=== PATIENT | female | born 1950 | race Caucasian/White ===

== ENCOUNTER → 2017-07-17 | Outpatient (CLI) | payer MEDICARE ==
[~2017-07-17] MED LIST: ADJUSTABLE COMM1 MIS; ASPI81TA11 PO; ATOR10TA15 PO; CALC8.5C CHEW; CPMMACHINE; CRANCAP2 PO; DIPH25CA PO; ESTR42.5V VAGINAL; GLUCCAP4 PO; LISI10TA PO; MELO7.5T4 PO; OMEP20TA PO; PEDI1TAB11 PO; VITA1000 PO; WALKER WHEELS/F1 MIS; ZOLO25TA PO
[2017-07-17 08:35] LABS: AUTOMATED NEUTROPHIL # 4.3 TH/MM3 (1.8-7.7); BASOPHIL % 0.7 % (0.0-2.0); EOSINOPHIL # 0.2 TH/MM3 (0-0.4); EOSINOPHIL % 3.1 % (0.0-4.0); HEMATOCRIT 40.6 % (35.0-46.0); HEMO FLAGS DIFF FINAL; LYMPH % 25.4 % (9.0-44.0); LYMPHOCYTE # 1.8 TH/MM3 (1.0-4.8); MEAN CELL VOLUME 89.5 FL (80.0-100.0); MEAN CORPUSCULAR HEMOGLOBIN 29.2 PG (27.0-34.0); MEAN CORPUSCULAR HGB CONC 32.7 % (32.0-36.0); MONO % 9.3 % (0.0-8.0); NEUT % 61.5 % (16.0-70.0); PLATELET COUNT 230 TH/MM3 (150-450); RED BLOOD COUNT 4.54 MIL/MM3 (4.00-5.30); RED CELL DISTRIBUTION WIDTH 13.3 % (11.6-17.2); WHITE BLOOD COUNT 6.9 TH/MM3 (4.0-11.0)
[2017-07-17 08:41] LABS: APTT (PATIENT) 28.5 SEC (24.3-30.1); PROTHROMBIN TIME - PATIENT 10.7 SEC (9.8-11.6)
[2017-07-17 09:09] LABS: ANION GAP 7 MEQ/L (5-15); AST (GOT) 26 U/L (15-37); BICARBONATE 26.7 MEQ/L (21.0-32.0); BLOOD UREA NITROGEN 15 MG/DL (7-18); CHLORIDE 105 MEQ/L (98-107); GLOMERULAR FILTRATION RATE 65 ML/MIN (>89); GLUCOSE,FASTING 96 MG/DL (74-99); POTASSIUM 3.7 MEQ/L (3.5-5.1); SODIUM (NA) 139 MEQ/L (136-145)
[2017-07-17 09:10] LABS: ALT (GPT) 37 U/L (10-53)
[2017-07-17 09:12] LABS: ALKALINE PHOSPHATASE 84 U/L (45-117); TOTAL BILIRUBIN ADULT 0.7 MG/DL (0.2-1.0)
[2017-07-17 09:14] LABS: BACTERIA, URINE OCC /hpf; BLOOD, URINE NEG (NEG); COMMENT (UR) CATH-CULTURE IND; CULTURE IF INDICATED CATH CULTURE IND; GLUCOSE,URINE NEG (NEG); KETONE, URINE NEG (NEG); MUCUS URINE FEW /lpf (OCC); NITRITE,URINE NEG (NEG); URINE COLOR YELLOW (YELLW/STRAW)
--- NOTE | 2017-07-21 09:10 | EKG ---
Date Performed: 07/17/2017 Time Performed: 08:34:55 PTAGE: 67 years EKG: Sinus rhythm WITH OCCASIONAL VENTRICULAR PREMATURE COMPLEXES BORDERLINE ECG NO PREVIOUS TRACING DOCTOR: Klaus Hilliard Interpretating Date/Time 07/21/2017 09:08:14
== END ==
LOC: CPRE 07:54
PROVIDERS: ATTEND Surgery
DX: Z01.810 Encounter for preprocedural cardiovascular examination (principal); Z01.812 Encounter for preprocedural laboratory examination; M17.12 Unilateral primary osteoarthritis, left knee; R94.31 Abnormal electrocardiogram [ECG] [EKG]; R82.90 Unspecified abnormal findings in urine; B96.20 Unspecified Escherichia coli [E. coli] as the cause of diseases classified elsewhere; Z79.01 Long term (current) use of anticoagulants
CPT/HCPCS: 36415; 80053; 81001; 85025; 85610; 85730; 87077; 87086; 87186; 93005

== ENCOUNTER → 2017-07-23 | Outpatient (CLI) | payer MEDICARE ==
[2017-07-23 10:33] LABS: BLOOD, URINE NEG (NEG); COMMENT (UR) CATH-CULT NOT IND; CULTURE IF INDICATED CATH CULTURE NOT IND; GLUCOSE,URINE NEG (NEG); HYALINE CAST, URINE 6 /lpf (RARE); KETONE, URINE NEG (NEG); MUCUS URINE FEW /lpf (OCC); NITRITE,URINE NEG (NEG); PH, URINE 5.5 (5.0-8.5); SQUAMOUS EPITHELIAL CELL URINE <1 /hpf (0-5); URINE COLOR YELLOW (YELLW/STRAW)
== END ==
LOC: CPRE 09:56
PROVIDERS: ATTEND Surgery
DX: Z01.812 Encounter for preprocedural laboratory examination (principal)
CPT/HCPCS: 81001

== ENCOUNTER 2017-07-24 06:06 | Inpatient (IN) | payer MEDICARE ==
--- NOTE | 2017-07-23 15:04 | MH ---
cc: Keely MARTINES M.D. DATE OF ADMISSION: 07/24/2017 PREOPERATIVE DIAGNOSIS Osteoarthritic degeneration left knee, now being admitted for left total knee arthroplasty. ADMISSION HISTORY AND PHYSICAL A 67-year-old female is being admitted today for left total knee arthroplasty due to severe painful osteoarthritic degeneration left knee. OTHER PAST HISTORY The patient has a history of anxiety and hypertension. CURRENT MEDICATIONS 1. Lisinopril. 2. Omeprazole. 3. Atorvastatin. She stopped her Mobic and her baby aspirin. PAST SURGERIES 1. Appendectomy. 2. Tonsillectomy. 3. Arthroscopic surgery to both knees. SOCIAL HISTORY She does not smoke or drink. REVIEW OF SYSTEMS Noncontributory. FAMILY HISTORY Noncontributory. ALLERGIES She has no known allergies. PHYSICAL EXAMINATION GENERAL: We find a 67-year-old female, well-developed, well-nourished, oriented x3, complaining of pain in her left knee. VITAL SIGNS: Blood pressure 132/80, pulse 78 and regular, respirations 18, temperature 98.1, pulse oximetry 98% on room air. HEENT: Eyes PERRLA, EOMI. Ears, nose, mouth clear. NECK: Supple. LUNGS: Clear. HEART: Regular rate. ABDOMEN: Soft. Positive bowel sounds, nontender. EXTREMITIES: Reveal the left knee to be tender along the medial joint surface. She is neurovascularly intact to her toes. IMPRESSION AT THIS TIME Osteoarthritic degeneration, left knee. PLAN Admission for left total knee arthroplasty today. The patient understands the procedure well and risks involve and wishes to proceed with surgery as soon as possible. She plans on going home with home health care after surgical stay. MD JESSICA Estrada/MAGIL /2:24 PM /2:44 PM
[~2017-07-24] VITALS: Ht 160 cm; Wt 77.7 kg
[~2017-07-24 06:06] MED LIST changes: -ADJUSTABLE COMM1 MIS; -CPMMACHINE; -WALKER WHEELS/F1 MIS
[2017-07-24] MEDS ORDERED: SODIUM CHLORID 0.9% 500 ML IV PRN (06:30)
[2017-07-24] MEDS ORDERED: POVIDONE IODINE 5% (ANTISEPSIS KIT) 4 APPLICATIONS EACH NARE PRN (06:30)
[2017-07-24] MEDS ORDERED: DEXAMETHASONE SOD PHOS 20 MG/5 ML VIAL IV SCH (06:30)
[2017-07-24] MEDS ORDERED: METOPROLOL TARTRATE 25 MG TAB PO PRN (06:30)
[2017-07-24] MEDS ORDERED: CHLORHEXIDINE GLUCONATE 4% SOLN 120 ML BTL TOPICAL SCH (06:30)
[2017-07-24] MEDS ORDERED: INSULIN HUMAN REGULAR 1,000 UNITS/10 ML VIAL SQ PRN (06:30)
[2017-07-24] MEDS ORDERED: VANCOMYCIN 1000 MG/NS 250 ML (for <70 kg) IV SCH ×2 (06:30)
[2017-07-24] MEDS ORDERED: LACTATED RINGER'S 1000 ML IV PRN (06:30)
[2017-07-24] MEDS ORDERED: ceFAZolin 2 GM PREMIX 50 ML IV SCH (06:30)
[2017-07-24] MEDS ORDERED: CHLORHEXIDINE GLUCONATE 2 % 1 PACK (2 CLOTHS) TOPICAL PRN (06:30)
[2017-07-24] MEDS ORDERED: ceFAZolin INJ 1,000 MG VIAL ONE (07:13)
[2017-07-24] MEDS ORDERED: MIDAZOLAM HCL 2 MG/2 ML VIAL ONE (08:01)
[2017-07-24] MEDS ORDERED: FAMOTIDINE 20 MG/2 ML VIAL ONE (08:01)
[2017-07-24] MEDS ORDERED: PROPOFOL 500 MG/50 ML INJ 50 ML ONE (08:01)
[2017-07-24] MEDS ORDERED: BUPIVACAINE LIPOSO PF 1.3% INJ 20 ML in SODIUM CHLORIDE 0.9% INJ 100 ML P-ARTICULR SCH (08:30)
[2017-07-24] MEDS ORDERED: SODIUM CHLORIDE 0.9% IV SCH ×3 (08:30→12:40)
[2017-07-24] MEDS ORDERED: TRANEXAMIC ACID IV SCH ×3 (08:30→12:40)
[2017-07-24] MEDS ORDERED: ROPIVACAINE 0.5% PF INJ 30 ML VIAL NERV BLOCK ONE (09:11)
[2017-07-24] MEDS ORDERED: DEXAMETHASONE SOD PHOS PF 10 MG/ML VIAL IV ONE (09:11)
[2017-07-24] MEDS ORDERED: NALOXONE HCL 0.4 MG/ML AMP IV PRN (11:00)
[2017-07-24] MEDS ORDERED: ONDANSETRON HCL 4 MG/2 ML VIAL IVP PRN (11:00)
[2017-07-24] MEDS ORDERED: diphenhydrAMINE HCL 25 MG CAP PO PRN (11:00)
[2017-07-24] MEDS ORDERED: ACETAMINOPHEN 325 MG TAB PO PRN (11:00)
[2017-07-24] MEDS ORDERED: TEMAZEPAM 15 MG CAP PO PRN (11:00)
[2017-07-24] MEDS ORDERED: SODIUM CHLORIDE 0.9% FLUSH 5 ML FLUSH IVF PRN (11:00)
--- NOTE | 2017-07-24 11:03 | HHI.FF ---
Face to Face Verification Diagnosis: (1) Status post total left knee replacement Physical Therapy Gait training Knee: Total knee, Protocol: Left, Full weight bearing Canvas Knee Splint: When in bed & 2 pillows btw thighs Nursing RN: 3 days/week x 2 weeks Nursing: Dressing changes Dressing Changes: Daily dressing change, 4x4s, Gauze, Paper tape I have seen patient Sherita Person on 07/24/17. My clinical findings support the need for the requested home health care services because: Limited ability to care for self High risk of falls I certify that my clinical findings support that this patient is homebound because: Unsteady gait/balance Keely Del Castillo MD Jul 24, 2017 11:03
[2017-07-24] MEDS ORDERED: CPMMACHINE (11:06)
[2017-07-24] MEDS ORDERED: WALKER WHEELS/F1 MIS (11:06)
[2017-07-24] MEDS ORDERED: ADJUSTABLE COMM1 MIS (11:06)
[2017-07-24] MEDS ORDERED: Post-op Orders (for Pharmacy) MISC XX ONE (11:11)
[2017-07-24] MEDS: LACTATED RINGER'S 1000 ML INJ 1,000 ML IV SCH ×2 (11:15→23:24)
[2017-07-24] MEDS ORDERED: MORPHINE SULFATE 4 MG/ML INJ IV PUSH PRN (11:15)
--- NOTE | 2017-07-24 11:18 | HHI.PR ---
Immediate Post Op Note Procedure Date: Jul 24, 2017 Pre Op Diagnosis: Severe painful osteoarthritic degeneration left knee Post Op Diagnosis: Severe painful osteoarthritic degeneration left knee Surgeon: Sim Del Castillo MD Metal Furniture Polisher(s): Shanna BRIDGES Procedure: Total Left knee Arthroplasty Complications: none Specimen(s) removed: none Estimated blood loss: 100cc Anesthesia: General, Regional Block Drains: None IVF Tourniquet time (min at mmHg) 52 mins at 300mmHg Patient to: PACU Patient Condition: Good Implant/Devices: SEE IMPLANT LOG (if applicable) Date/Time of Procedure: SEE SURGICAL CARE RECORD Shanna Mishra Jul 24, 2017 11:18
[2017-07-24] MEDS ORDERED: PROPOFOL 200 MG/20 ML AMP IV ONE (12:00)
[2017-07-24] MEDS ORDERED: LACTATED RINGER'S 1000 ML INJ 1,000 ML IV ONE (12:00)
[2017-07-24] MEDS ORDERED: PHENYLEPH/NS 1000 MCG/10 ML SYR IV ONE (12:00)
[2017-07-24] MEDS ORDERED: ePHEDrine/NS 25 MG/5 ML SYR IV ONE (12:00)
[2017-07-24] MEDS ORDERED: ONDANSETRON HCL 4 MG/2 ML VIAL IV PUSH ONE (12:00)
--- NOTE | 2017-07-24 12:13 | PD.CONS ---
[facility] Requested By DR MARTINES Reason for Consult Medical Management Primary Care Physician Tasia Rodriguez MD Diagnoses: (1) Anxiety (2) Hypertension (3) Osteoarthritis of left knee (4) Status post total left knee replacement (5) GERD (gastroesophageal reflux disease) History of Present Illness Patient is a 67-year-old female. SHe underwent a left total knee surgery today for severe osteoarthritis tolerated the procedure well we've been asked to help regarding medical management we'll consult for that. Patient also has a history of hypertension GERD and osteoarthritis as well as anxiety and depression. Review of Systems Constitutional: DENIES: Diaphoretic episodes, Fatigue, Fever, Weight gain, Weight loss, Chills, Dizziness, Change in appetite Endocrine: DENIES: Abnorml menstrual pattern, Heat/cold intolerance Eyes: DENIES: Blurred vision, Diplopia, Eye inflammation Ears, nose, mouth, throat: DENIES: Tinnitus, Hearing loss, Vertigo Respiratory: DENIES: Apneas, Cough, Snoring, Wheezing Cardiovascular: DENIES: Chest pain, Palpitations, Syncope Gastrointestinal: DENIES: Abdominal pain, Black stools, Bloody stools Genitourinary: DENIES: Abnormal vaginal bleeding, Dysmenorrhea Musculoskeletal: COMPLAINS OF: Joint pain, DENIES: Muscle aches, Stiffness, Joint Swelling, Back pain Integumentary: DENIES: Abnormal pigmentation, Pruritus, Rash Hematologic/lymphatic: DENIES: Bruising, Lymphadenopathy Immunologic/allergic: DENIES: Eczema, Urticaria Neurologic: DENIES: Abnormal gait, Headache, Localized weakness, Paresthesias, Seizures, Speech Problems Psychiatric: COMPLAINS OF: Anxiety, Depression, DENIES: Confusion, Mood changes , Hallucinations Past Family Social History Allergies: Coded Allergies: No Known Allergies (Unverified , 07/24/17) Past Medical History Hypertension Sleep apnea Anxiety depression History of pulmonary embolism GERD Osteoarthritis Past Surgical History Tonsillectomy BL OOPHORECTOMY Appendectomy Left knee arthroscopic surgery Reported Medications Reported Meds & Active Scripts Active Reported Zoloft (Sertraline HCl) 25 Mg Tab 25 Mg PO DAILY Atorvastatin (Atorvastatin Calcium) 10 Mg Tab 10 Mg PO HS Vitamin D-1000 (Cholecalciferol) 1,000 Unit Tab 1,000 Units PO DAILY Estrace Vaginal (Estradiol) 0.01% Cream 1 Appl VAGINAL HS Aspirin EC (Aspirin) 81 Mg Tabdr 81 Mg PO DAILY Atzxgwctndt-Qvudydthrtn-Ykxhezyj 1 Cap Cap 1 Cap PO DAILY Gummies Girls' Multivitamins (Pediatric Multivitamin No.29) 1 Each Tab.chew 2 Chew PO DAILY Viactiv (Calcium-Vitamins D & K) 500-500-40 Mg-Unit-Mcg Chew 2 Ea CHEW Diphenhydramine (Diphenhydramine HCl) 25 Mg Cap 50 Mg PO HS PRN Omeprazole 20 Mg Tab 20 Mg PO DAILY Meloxicam 7.5 Mg Tab 7.5 Mg PO BID Lisinopril-Hctz 10-12.5 Mg Tab 1 Tab PO DAILY Cranberry Urinary Comfort (Vitamins C & E) 1 Cap 1 Cap PO DAILY Active Ordered Medications Current Medications Chlorhexidine Gluconate (Hibiclens 4% Top Soln) 1 applic ONCE TOPICAL Last administered on 07/24/17 06:45; Start 07/24/17 at 06:30; Stop 07/27/17 at 06:29 Cefazolin Sodium/ Dextrose 50 ml @ 100 mls/hr SIDE PANEL HANGER IV Last administered on 07/24/17 08:30; Start 07/24/17 at 06:30; Stop 07/27/17 at 06:29 Vancomycin HCl 1000 mg/Sodium Chloride 250 ml @ 250 mls/hr SIDE PANEL HANGER IV Last administered on 07/24/17 07:40; Start 07/24/17 at 06:30; Stop 07/27/17 at 06:29 Tranexamic Acid 751 mg/Sodium Chloride 107.51 ml @ 200 mls/ hr ONCE IV Last administered on 07/24/17 09:22; Start 07/24/17 at 08:30; Stop 07/24/17 at 14:30 Tranexamic Acid 751 mg/Sodium Chloride 107.51 ml @ 200 mls/ hr ONCE IV ; Start 07/24/17 at 11:30; Stop 07/24/17 at 12:30 Bupivacaine Liposome 20 ml/ Sodium Chloride 120 ml @ 240 mls/hr ONCE P- ARTICULR Last administered on 07/24/17 09:19; Start 07/24/17 at 08:30; Stop 07/24 at 14:30 Dexamethasone Sodium Phosphate (Decadron Inj) 10 mg SIDE PANEL HANGER IV Last administered on 07/24/17 07:00; Start 07/24/17 at 06:30; Stop 07/24/17 at 23:59 Lactated Ringer's 1,000 ml @ 30 mls/hr Q24H PRN IV SEE LABEL COMMENTS Last administered on 07/24/17 06:45; Start 07/24/17 at 06:30; Stop 07/27/17 at 06:29 Sodium Chloride 500 ml @ 30 mls/hr [id number] PRN IV SEE LABEL COMMENTS; Start 07/24/17 at 06:30; Stop 07/27/17 at 06:29 Metoprolol Tartrate (Lopressor) 25 mg SIDE PANEL HANGER PRN PO SEE LABEL COMMENTS; Start 07/24/17 at 06:30; Stop 07/27/17 at 06:29 Povidone Iodine (Betadine 5% Antisepsis Kit) 1 applic SIDE PANEL HANGER PRN EACH NARE SEE LABEL COMMENTS Last administered on 07/24/17 06:45; Start 07/24/17 at 06:30; Stop 07/27/17 at 06:29 Chlorhexidine Gluconate (Chlorhexidine 2% Cloth) 3 pack SIDE PANEL HANGER PRN TOPICAL SEE LABEL COMMENTS Last administered on 07/24/17 06:15; Start 07/24/17 at 06:30; Stop 07/27/17 at 06:29 Insulin Human Regular (NovoLIN R INJ) See Protocol Table ... SIDE PANEL HANGER PRN SQ SEE PROTOCOL TABLE; Start 07/24/17 at 06:30; Stop 07/27/17 at 06:29 Cefazolin Sodium (Ancef Inj) 2,000 mg STK-MED ONCE .ROUTE Last administered on 07/24/17 09:19; Start 07/24/17 at 07:13; Stop 07/24/17 at 07:14; Status DC Propofol 50 ml @ As Directed STK-MED ONCE .ROUTE ; Start 07/24/17 at 08:01; Stop 07/24/17 at 08:02; Status DC Midazolam HCl (Versed Inj) 2 mg STK-MED ONCE .ROUTE ; Start 07/24/17 at 08:01; Stop 07/24/17 at 08:02; Status DC Famotidine (Pepcid Inj) 20 mg STK-MED ONCE .ROUTE ; Start 07/24/17 at 08:01; Stop 07/24/17 at 08:02; Status DC Aspirin (Ecotrin Ec) 81 mg DAILY PO ; Start 07/25/17 at 09:00; Status UNV Atorvastatin Calcium (Lipitor) 10 mg HS PO ; Start 07/24/17 at 21:00; Status UNV Cholecalciferol (Vitamin D3) 1,000 units DAILY PO ; Start 07/25/17 at 09:00; Status UNV Diphenhydramine HCl (Benadryl) 50 mg HS PRN PO INSOMNIA; Start 07/24/17 at 11:00 ; Status UNV Estradiol (Estrace 0.01% Vag Cream) 1 appl HS VAGINAL ; Start 07/24/17 at 21:00; Status UNV Sertraline HCl (Zoloft) 25 mg DAILY PO ; Start 07/25/17 at 09:00; Status UNV Non-Formulary Medication 1 cap DAILY PO ; Start 07/25/17 at 09:00; Status UNV Non-Formulary Medication 1 tab DAILY PO ; Start 07/25/17 at 09:00; Status UNV Non-Formulary Medication 20 mg DAILY PO ; Start 07/25/17 at 09:00; Status UNV Non-Formulary Medication 2 chew DAILY PO ; Start 07/25/17 at 09:00; Status UNV Non-Formulary Medication 1 cap DAILY PO ; Start 07/25/17 at 09:00; Status UNV Lactated Ringer's 1,000 ml @ 80 mls/hr [id number] IV ; Start 07/24/17 at 10:54; Status UNV IV Flush (NS Flush) 2 ml UNSCH PRN IVF FLUSH AFTER USING IV ACCESS; Start at 11:00; Status UNV IV Flush (NS Flush) 2 ml BID IVF ; Start 07/24/17 at 21:00; Status UNV Cefazolin Sodium 1000 mg/Sodium Chloride 100 ml @ 200 mls/hr Q6H IV ; Start 07/24/17 at 11:00; Stop 07/24/17 at 23:29; Status UNV Miscellaneous Information (Post-op Orders (for Pharmacy)) STAT ONCE XX ; Start 07/24/17 at 11:00; Stop 07/24/17 at 11:01; Status UNV Acetaminophen/ Hydrocodone Bitart ([place] 7.5-325 Mg) 1 tab Q4H PRN PO PAIN LESS THAN 5 ON SCALE; Start 07/24/17 at 11:00; Status UNV Acetaminophen/ Hydrocodone Bitart ([place] 7.5-325 Mg) 2 tab Q4H PRN PO PAIN SCALE 5 TO 10; Start 07/24/17 at 11:00; Status UNV Acetaminophen (Tylenol) 650 mg Q6H PRN PO pain and temp over 101; Start at 11:00; Status UNV Tranexamic Acid / Sodium Chloride 100 ml @ 200 mls/hr UNSCH IV ; Start 07/24/17 at 11:00; Stop 07/24/17 at 11:29; Status UNV Multivitamins/ Minerals Therapeutic (Theragran M Tab) 1 tab BID PO ; Start at 21:00; Stop 09/23/17 at 20:59; Status UNV Ondansetron HCl (Zofran Inj) 4 mg Q6H PRN IVP NAUSEA OR VOMITING; Start at 11:00; Status UNV Docusate Sodium (Colace) 100 mg BID PO ; Start 07/25/17 at 21:00; Status UNV Temazepam (Restoril) 15 mg HS PRN PO SLEEP; Start 07/24/17 at 11:00; Status UNV Bacitracin (Bacitracin Oint Packet) 0.9 gm UNSCH X1 PRN TOP WOUND CARE; Start 07/26/17 at 10:15; Stop 07/28/17 at 10:14; Status UNV Naloxone HCl (Narcan Inj) 0.4 mg UNSCH PRN IV RESPIRATORY RATE LESS THAN 10; Start 07/24/17 at 11:00; Status UNV Diphenhydramine HCl (Benadryl Inj) 25 mg Q6H PRN IV ITCHING; Start 07/24/17 at 11:00; Status UNV Apixaban (Eliquis) 2.5 mg BID PO ; Start 07/25/17 at 10:00; Status UNV Morphine Sulfate (Morphine Inj) 2 mg Q3H PRN IV PUSH BREAKTHROUGH PAIN; Start 07/24/17 at 11:15; Status UNV Family History Some hypertension Social History Denies any tobacco or illicits Drinks couple wine coolers a week Physical Exam Vital Signs Vital Signs Date Time Temp Pulse Resp B/P (MAP) Pulse Ox O2 Delivery O2 Flow Rate FiO2 07/24/17 07:07 98.3 66 16 151/85 (007) 98 Physical Exam GENERAL: This is a well-nourished, well-developed patient, in no apparent distress. SKIN: No rashes, ecchymoses or lesions. Cool and dry. HEAD: Atraumatic. Normocephalic. No temporal or scalp tenderness. EYES: Pupils equal round and reactive. Extraocular motions intact. No scleral icterus. No injection or drainage. ENT: Nose without bleeding, purulent drainage or septal hematoma. Throat without erythema, tonsillar hypertrophy or exudate. Uvula midline. Airway patent. Tongue is midline NECK: Trachea midline. No JVD or lymphadenopathy. Supple, nontender, no meningeal signs. CARDIOVASCULAR: Regular rate and rhythm without murmurs, gallops, or rubs. S1- S2 no S3 or S4 no thrill RESPIRATORY: Clear to auscultation. Breath sounds equal bilaterally. No wheezes , rales, or rhonchi. GASTROINTESTINAL: Abdomen soft, non-tender, nondistended. No hepato-splenomegaly , or palpable masses. No guarding. MUSCULOSKELETAL: Extremities without clubbing, cyanosis, or edema. No joint tenderness, effusion, or edema noted. No calf tenderness. Negative Homans sign bilaterally. Bilateral lower extremity nerve NEUROLOGICAL: Awake and alert. Cranial nerves II through XII intact. Motor and sensory grossly within normal limits. Five out of 5 muscle strength in all muscle groups. Normal speech. Insight and judgment are good Mood and behavior appropriate Laboratory Reviewed from July 18 and July 23 stable Assessment and Plan Problem List: (1) Status post total left knee replacement ICD Code: Z96.652 - Presence of left artificial knee joint (2) Osteoarthritis of left knee ICD Code: M17.12 - Unilateral primary osteoarthritis, left knee (3) Hypertension ICD Code: I10 - Essential (primary) hypertension (4) Anxiety ICD Code: F41.9 - Anxiety disorder, unspecified (5) GERD (gastroesophageal reflux disease) ICD Code: K21.9 - Gastro-esophageal reflux disease without esophagitis Assessment and Plan Patient is a 67-year-old female. He will underwent a left total knee arthroplasty for severe osteoarthritis. Tolerated the procedure well now seeing her postoperatively has a history of hypertension, anxiety and GERD and osteoarthritis Status post left total knee arthroplasty by Dr. Martines pain control per orthopedic DVT prophylaxis per orthopedic Hypertension resume home medications Reflex GERD resume home medications Physical therapy to eval and treat Possibly to home with home health care or to SNF for aggressive therapy Manpreet perea Has DVT and GI prophylaxis as stated Code Status Full code Discussed Condition With Discussed with PACU nurse and patient Robi Perkins DO Jul 24, 2017 12:13
--- NOTE | 2017-07-24 12:41 | RADRPT ---
EXAM DATE/TIME: 07/24/2017 11:32 [facility] COMPARISON: No previous studies available for comparison. INDICATIONS : Post of left knee prosthesis. MEDICAL HISTORY : None. SURGICAL HISTORY : None. ENCOUNTER: Initial ACUITY: 1 day PAIN SCORE: 0/10 LOCATION: Left knee FINDINGS: AP and lateral views of the knee following arthroplasty reveals a prosthesis in anatomic alignment. F racture is not appreciated. CONCLUSION: Status post total knee arthroplasty. Robi Vasquez MD FACR Board Certified Radiologist. This report was verified electronically.
[2017-07-24 20:45] VITALS: BP 99/50; PULSE 85; RESP 17; TEMP 96.9; O2SAT 95
[2017-07-24] MEDS: ATORVASTATIN 10 MG TAB PO SCH (20:52)
[2017-07-24] MEDS: SODIUM CHLORIDE 0.9% FLUSH 5 ML FLUSH IVF SCH (20:53)
[2017-07-24] MEDS: ESTRADIOL 0.1 MG/GM VAG CREAM 42.5 GM VAGINAL SCH (20:53)
[2017-07-25 00:40] VITALS: BP 99/59; PULSE 81; RESP 17; TEMP 98.3; O2SAT 97
[2017-07-25 04:16] VITALS: BP 99/63; PULSE 70; RESP 17; TEMP 98; O2SAT 99
--- NOTE | 2017-07-25 08:10 | PD.ORT.PN ---
Subjective Subjective Remarks pt comfortable, no complaints at moment. Objective Vitals Vital Signs Date Time Temp Pulse Resp B/P (MAP) Pulse Ox O2 Delivery O2 Flow Rate FiO2 07/25/17 04:16 98.0 70 17 99/63 (75) 99 07/25/17 00:40 98.3 81 17 99/59 (72) 97 07/24/17 20:45 96.9 85 17 99/50 (66) 95 07/24/17 15:00 97.8 63 16 126/71 (89) 99 Nasal Cannula 2 07/24/17 14:15 65 16 121/70 (87) 99 Nasal Cannula 2 07/24/17 14:00 68 15 118/70 (86) 99 Nasal Cannula 2 07/24/17 13:30 71 15 124/64 (84) 99 Nasal Cannula 2 07/24/17 13:00 66 15 131/65 (87) 99 Nasal Cannula 2 07/24/17 12:30 68 15 126/68 (87) 99 Nasal Cannula 2 07/24/17 12:15 65 16 128/68 (88) 99 Nasal Cannula 2 07/24/17 12:00 60 18 122/63 (82) 99 Nasal Cannula 2 07/24/17 11:45 64 15 114/62 (79) 99 Nasal Cannula 2 07/24/17 11:30 66 17 114/58 (76) 99 Nasal Cannula 2 07/24/17 11:13 97.1 71 15 119/63 (81) 100 Nasal Cannula 2 I/O 07/24/17 07/24/17 07/24/17 07/25/17 07/25/17 07/25/17 07:00 15:00 23:00 07:00 15:00 23:00 Intake Total 2305 ml 460 ml 588 ml Output Total 850 ml Balance 1455 ml 460 ml 588 ml Intake Oral 360 ml 120 ml IV Total 705 ml 100 ml 468 ml Other 1600 ml Output Urine Total 750 ml Estimated Blood Loss 100 ml # Voids 2 1 # Bowel Movements 0 0 Imaging Last 24 hours Impressions Knee X-Ray 07/24/17 1054 Signed Impressions: Service Date/Time: Monday, July 24, 2017 11:32 - CONCLUSION: Status post total knee arthroplasty. Robi Vasquez MD Objective Remarks Dressing dry and intact. Block still partially working. Assessment & Plan Ortho Post Op Day #: 1 Problem List: Assessment and Plan PT, wound care. home soon with HHC and PT. Keely Del Castillo MD Jul 25, 2017 08:10
[2017-07-25 08:42] VITALS: BP 114/53; PULSE 76; RESP 17; TEMP 97.6; O2SAT 96
[2017-07-25] MEDS: PANTOPRAZOLE SOD 20 MG DELAYED RELEASE TAB PO SCH (08:46)
[2017-07-25] MEDS: CHOLECALCIFEROL (VIT D3) 1000 UNIT TAB PO SCH (08:47)
[2017-07-25] MEDS: HYDROCHLOROTHIAZIDE 25 MG TAB PO SCH (08:47)
[2017-07-25] MEDS: SERTRALINE HCL 50 MG TAB PO SCH (08:47)
[2017-07-25] MEDS: LISINOPRIL 10 MG TAB PO SCH (08:47)
[2017-07-25] MEDS: SODIUM CHLORIDE 0.9% FLUSH 5 ML FLUSH IVF SCH ×2 (08:48→21:11)
[2017-07-25] MEDS: ACETAMINOPHEN/HYDROcodone 325 MG/7.5 MG TAB PO PRN ×4 (08:48→21:11)
[2017-07-25] MEDS: ASPIRIN EC 81 MG TABEC PO SCH (08:48)
[2017-07-25] MEDS ORDERED: NON-FORMULARY DRUG (Vitamins C & E (Cranberry Urinary Comfort) 1 CAP) PO SCH (09:00)
[2017-07-25] MEDS ORDERED: NON-FORMULARY DRUG (Lisinopril-Hctz 1 TAB) PO SCH (09:00)
[2017-07-25] MEDS ORDERED: CHONDROITIN PO SCH (09:00)
[2017-07-25] MEDS ORDERED: [UNRECOGNIZED DRUG - OTHER] PO SCH (09:00)
[2017-07-25] MEDS ORDERED: GLUCOSAMINE PO SCH (09:00)
[2017-07-25] MEDS ORDERED: COLLAGEN PO SCH (09:00)
[2017-07-25 09:09] LABS: AUTOMATED NEUTROPHIL # 14.9 TH/MM3 (1.8-7.7); BASOPHIL % 0.1 % (0.0-2.0); HEMATOCRIT 34.5 % (35.0-46.0); HEMO FLAGS DIFF FINAL; LYMPH % 6.8 % (9.0-44.0); LYMPHOCYTE # 1.2 TH/MM3 (1.0-4.8); MEAN CELL VOLUME 88.5 FL (80.0-100.0); MEAN CORPUSCULAR HEMOGLOBIN 29.7 PG (27.0-34.0); MEAN CORPUSCULAR HGB CONC 33.6 % (32.0-36.0); MONO % 6.2 % (0.0-8.0); NEUT % 86.9 % (16.0-70.0); PLATELET COUNT 233 TH/MM3 (150-450); RED CELL DISTRIBUTION WIDTH 13.4 % (11.6-17.2); WHITE BLOOD COUNT 17.1 TH/MM3 (4.0-11.0)
--- NOTE | 2017-07-25 09:12 | HHI.PR ---
Subjective Remarks No acute events overnight. Afebrile, vital signs stable. Patient denies any pain at this time. Sitting up in bed. Patient complains of difficulty sleeping. She states that this is a common occurrence for her given her anxiety and requests a sleep aid. Objective Vitals Vital Signs Date Time Temp Pulse Resp B/P (MAP) Pulse Ox O2 Delivery O2 Flow Rate FiO2 07/25/17 08:42 97.6 76 17 114/53 (73) 96 07/25/17 04:16 98.0 70 17 99/63 (75) 99 07/25/17 00:40 98.3 81 17 99/59 (72) 97 07/24/17 20:45 96.9 85 17 99/50 (66) 95 07/24/17 15:00 97.8 63 16 126/71 (89) 99 Nasal Cannula 2 07/24/17 14:15 65 16 121/70 (87) 99 Nasal Cannula 2 07/24/17 14:00 68 15 118/70 (86) 99 Nasal Cannula 2 07/24/17 13:30 71 15 124/64 (84) 99 Nasal Cannula 2 07/24/17 13:00 66 15 131/65 (87) 99 Nasal Cannula 2 07/24/17 12:30 68 15 126/68 (87) 99 Nasal Cannula 2 07/24/17 12:15 65 16 128/68 (88) 99 Nasal Cannula 2 07/24/17 12:00 60 18 122/63 (82) 99 Nasal Cannula 2 07/24/17 11:45 64 15 114/62 (79) 99 Nasal Cannula 2 07/24/17 11:30 66 17 114/58 (76) 99 Nasal Cannula 2 07/24/17 11:13 97.1 71 15 119/63 (81) 100 Nasal Cannula 2 I/O 07/24/17 07/24/17 07/24/17 07/25/17 07/25/17 07/25/17 07:00 15:00 23:00 07:00 15:00 23:00 Intake Total 2305 ml 460 ml 588 ml Output Total 850 ml Balance 1455 ml 460 ml 588 ml Intake Oral 360 ml 120 ml IV Total 705 ml 100 ml 468 ml Other 1600 ml Output Urine Total 750 ml Estimated Blood Loss 100 ml # Voids 2 1 # Bowel Movements 0 0 Objective Remarks Gen.: No acute distress Head: Normocephalic. Atraumatic. EENT: Pupils equal round and reactive to light. Nose without drainage. Airway intact. Throat without injection. Cardiovascular: Regular rate and rhythm. No murmurs, rubs or gallops. Respiratory: Lungs clear to auscultation bilaterally. No wheezes or rhonchi. Abdomen: Soft, nontender, nondistended. No peritoneal signs. Musculoskeletal: No gross deformities. No edema. Skin: No obvious rashes or erythema. Neuro: Sensory and motor grossly intact. Cranial nerves II through XII grossly intact. Psych: Appropriate mood and affect Procedures 07/24 - left total knee arthroplasty A/P Problem List: (1) Status post total left knee replacement ICD Code: Z96.652 - Presence of left artificial knee joint (2) Osteoarthritis of left knee ICD Code: M17.12 - Unilateral primary osteoarthritis, left knee (3) Hypertension ICD Code: I10 - Essential (primary) hypertension (4) Anxiety ICD Code: F41.9 - Anxiety disorder, unspecified (5) GERD (gastroesophageal reflux disease) ICD Code: K21.9 - Gastro-esophageal reflux disease without esophagitis Assessment and Plan Patient is a 67-year-old female. She underwent a left total knee arthroplasty for severe osteoarthritis on 07/24. History of hypertension, anxiety and GERD and osteoarthritis. Status post left total knee arthroplasty by Dr. Del Castillo pain control per orthopedic DVT prophylaxis per orthopedic Hypertension resume home medications - well controlled at this time on home regimen Reflex/GERD resume home medications Physical therapy to eval and treat Per orthopedic surgery, patient will be discharged to home with home health care and PT soon Has DVT and GI prophylaxis as stated Discharge Planning Per orthopedic surgery Oxana Brady MD R3 Jul 25, 2017 09:12
[2017-07-25] MEDS ORDERED: ZOLPIDEM TARTRATE 10 MG TAB PO PRN (09:15)
[2017-07-25 09:39] LABS: ANION GAP 6 MEQ/L (5-15); AST (GOT) 31 U/L (15-37); BLOOD UREA NITROGEN 18 MG/DL (7-18); CHLORIDE 103 MEQ/L (98-107); GLOMERULAR FILTRATION RATE 56 ML/MIN (>89); MAGNESIUM 2.2 MG/DL (1.5-2.5); POTASSIUM 3.7 MEQ/L (3.5-5.1); SODIUM (NA) 137 MEQ/L (136-145)
[2017-07-25 09:40] LABS: ALT (GPT) 36 U/L (10-53)
[2017-07-25 09:49] LABS: ALKALINE PHOSPHATASE 83 U/L (45-117); FREE T4 1.06 NG/DL (0.76-1.46); TOTAL BILIRUBIN ADULT 0.3 MG/DL (0.2-1.0)
[2017-07-25] MEDS: APIXABAN 2.5 MG TABLET PO SCH ×2 (10:28→21:09)
[2017-07-25 10:48] LABS: HEMOGLOBIN A1a 1.1 %; HEMOGLOBIN A1b 0.9 %; HEMOGLOBIN Ao 84.9 %; HEMOGLOBIN F 0.9 %; HEMOGLOBIN LA1C 2.3 %
[2017-07-25 11:33] VITALS: BP 112/59; PULSE 60; RESP 17; TEMP 96.8; O2SAT 96
[2017-07-25] MEDS: LACTATED RINGER'S 1000 ML INJ 1,000 ML IV SCH (11:54)
[2017-07-25 16:45] VITALS: BP 107/56; PULSE 69; RESP 17; TEMP 96.7; O2SAT 97
[2017-07-25 20:33] VITALS: BP 118/63; PULSE 68; RESP 18; TEMP 97.1; O2SAT 96
[2017-07-25] MEDS: MULTIVITAMINS/MINERALS THERAPEUTIC TAB PO SCH (21:10)
[2017-07-25] MEDS: DOCUSATE SODIUM 100 MG CAP PO SCH (21:10)
[2017-07-25] MEDS: ATORVASTATIN 10 MG TAB PO SCH (21:10)
[2017-07-25] MEDS: ESTRADIOL 0.1 MG/GM VAG CREAM 42.5 GM VAGINAL SCH (21:11)
[2017-07-26 00:13] VITALS: BP 98/63; PULSE 62; RESP 18; TEMP 97.9; O2SAT 96
[2017-07-26] MEDS: LACTATED RINGER'S 1000 ML INJ 1,000 ML IV SCH ×2 (00:24→12:54)
[2017-07-26] MEDS: ACETAMINOPHEN/HYDROcodone 325 MG/7.5 MG TAB PO PRN ×4 (01:12→13:40)
[2017-07-26 04:10] VITALS: BP 105/58; PULSE 60; RESP 18; TEMP 98.3; O2SAT 96
[2017-07-26 05:00] LABS: REVIEW FLAG FINAL
[2017-07-26 08:00] VITALS: BP 111/61; PULSE 73; RESP 18; TEMP 97.6; O2SAT 97
[2017-07-26] MEDS: diphenhydrAMINE HCL 50 MG/ML VIAL IV PRN (08:42)
[2017-07-26] MEDS: APIXABAN 2.5 MG TABLET PO SCH ×2 (08:48→21:48)
[2017-07-26] MEDS: PANTOPRAZOLE SOD 20 MG DELAYED RELEASE TAB PO SCH (08:48)
[2017-07-26] MEDS: MULTIVITAMINS/MINERALS THERAPEUTIC TAB PO SCH ×2 (08:48→21:47)
[2017-07-26] MEDS: DOCUSATE SODIUM 100 MG CAP PO SCH ×2 (08:48→21:47)
[2017-07-26] MEDS: CHOLECALCIFEROL (VIT D3) 1000 UNIT TAB PO SCH (08:48)
[2017-07-26] MEDS: SODIUM CHLORIDE 0.9% FLUSH 5 ML FLUSH IVF SCH ×2 (08:49→21:48)
[2017-07-26] MEDS: ASPIRIN EC 81 MG TABEC PO SCH (08:49)
[2017-07-26] MEDS: HYDROCHLOROTHIAZIDE 25 MG TAB PO SCH (09:00)
[2017-07-26] MEDS: SERTRALINE HCL 50 MG TAB PO SCH (09:00)
[2017-07-26] MEDS: LISINOPRIL 10 MG TAB PO SCH (09:00)
--- NOTE | 2017-07-26 09:30 | HHI.PR ---
Subjective Remarks No acute events overnight. Afebrile, vital signs stable. Patient is extremely nauseated this morning and also complains of lower extremity pain where her knee replacement was done. She states she also has a headache. She was given medication approximately 5 minutes prior to my visit with her and states the medication is already starting to work. Objective Vitals Vital Signs Date Time Temp Pulse Resp B/P (MAP) Pulse Ox O2 Delivery O2 Flow Rate FiO2 07/26/17 08:00 97.6 73 18 111/61 (78) 97 07/26/17 04:10 98.3 60 18 105/58 (74) 96 07/26/17 00:13 97.9 62 18 98/63 (75) 96 07/25/17 20:33 97.1 68 18 118/63 (81) 96 07/25/17 16:45 96.7 69 17 107/56 (73) 97 07/25/17 11:33 96.8 60 17 112/59 (76) 96 I/O 07/25/17 07/25/17 07/25/17 07/26/17 07/26/17 07/26/17 07:00 15:00 23:00 07:00 15:00 23:00 Intake Total 588 ml 960 ml 360 ml 120 ml Balance 588 ml 960 ml 360 ml 120 ml Intake Oral 120 ml 960 ml 360 ml 120 ml IV Total 468 ml # Voids 1 4 1 1 # Bowel Movements 0 1 0 0 Result Diagram: 07/26/17 0417 07/25/17 0828 Objective Remarks Gen.: No acute distress Head: Normocephalic. Atraumatic. EENT: Pupils equal round and reactive to light. Nose without drainage. Airway intact. Throat without injection. Cardiovascular: Regular rate and rhythm. No murmurs, rubs or gallops. Respiratory: Lungs clear to auscultation bilaterally. No wheezes or rhonchi. Abdomen: Soft, nontender, nondistended. No peritoneal signs. Musculoskeletal: No gross deformities. No edema. Skin: No obvious rashes or erythema. Neuro: Sensory and motor grossly intact. Cranial nerves II through XII grossly intact. Psych: Appropriate mood and affect Procedures 07/24 - left total knee arthroplasty A/P Problem List: (1) Status post total left knee replacement ICD Code: Z96.652 - Presence of left artificial knee joint (2) Osteoarthritis of left knee ICD Code: M17.12 - Unilateral primary osteoarthritis, left knee (3) Hypertension ICD Code: I10 - Essential (primary) hypertension (4) Anxiety ICD Code: F41.9 - Anxiety disorder, unspecified (5) GERD (gastroesophageal reflux disease) ICD Code: K21.9 - Gastro-esophageal reflux disease without esophagitis Assessment and Plan Patient is a 67-year-old female. She underwent a left total knee arthroplasty for severe osteoarthritis on 07/24. History of hypertension, anxiety and GERD and osteoarthritis. Status post left total knee arthroplasty by Dr. Del Castillo pain control per orthopedic DVT prophylaxis per orthopedic Hypertension resume home medications - well controlled at this time on home regimen Reflex/GERD resume home medications Physical therapy to eval and treat Per orthopedic surgery, patient will be discharged to home with home health care and PT Thursday Has DVT and GI prophylaxis as stated Discharge Planning Per orthopedic surgery, DC to home Thursday Oxana Brady MD R3 Jul 26, 2017 09:30
[2017-07-26] MEDS ORDERED: BACITRACIN OINT 0.9 GM PKT TOP PRN (10:15)
[2017-07-26 12:00] VITALS: BP 105/62; PULSE 62; RESP 18; TEMP 96.4; O2SAT 95
--- NOTE | 2017-07-26 12:04 | MP ---
cc: Keely DEL CASTILLO MD DATE OF SURGERY: 07/24/2017 PREOPERATIVE DIAGNOSIS Osteoarthritic degeneration left knee. POSTOPERATIVE DIAGNOSIS Osteoarthritic degeneration left knee. SURGERY PERFORMED Left total knee arthroplasty using Consensus knee system with B-Spoke protocol size 4 femur, one tibia, two patella and 10 insert with two batches of DePuy cement, 120 cc of Exparel, using the B-Spoke protocol. SURGEON Dr. Del Castillo DELI WORKER: YULIANA Price. ANESTHESIA: General intubation, femoral nerve block. PROCEDURE: After successful induction of anesthesia, the patient is placed on the operating room table in the supine position. The knee is prepped and draped in the usual manner. A tourniquet is inflated at the upper thigh and set to 300 mmHg pressure after exsanguination of the lower extremity. A longitudinal incision is made extending from 3 inches proximal to the superior pole of the patella, across the patella in longitudinal fashion, and down past the insertion of the tibial tubercle into the proximal tibia. The incision is carried down through subcutaneous tissue along the medial aspect of the patella and retinaculum, down through the capsule to expose the knee joint. The patella and patellar tendon are freed up enough to allow the patella to be inverted and retracted off the lateral side of the knee joint. The knee joint is left exposed. Small osteophytes are removed. All soft tissue is removed to allow proper position of the femoral and tibial cutting jig guide. The first femoral jig is then inserted along the distal end of the femur after first measuring to decide whether this is a small, medium, or large component. The notch is then drilled and the tibial cutting guide inserted into the femoral cutting guide, along with the ankle brace to allow for proper measurement of the tibial cutting surface that needed to be resected. Pins are inserted into the tibial cutting jig and femoral cutting jig to hold them in place. An oscillating saw is then used to resect the surface of the tibia. The surface of the tibia is then completely removed using sharp and blunt dissection. The anterior and posterior cuts of the femur are then made as well using an oscillating saw through the cutting guide. All guides are then removed and the varus/valgus angulation cutting guide applied to the femur for proper measurement of the proper amount of valgus. The anterior cutting guide for the femur is then inserted at the anterior femoral cuts made. Next, the first block trial is inserted into the femur to allow for proper condyle drill holes to be made which are then made followed by removal of the bone between the condyles using an oscillating saw as well as the bone removed at the most posterior surface of the condyle. After this, the guide is removed and the chamfer cuts made using the chamfer cutting guide from both anterior and posterior. Next, the femoral trial is then inserted, the tibial surface reflected anterior to expose the tibial surface and a tibial stem guide is inserted after first measuring for a standard, standard plus, large, or large plus surface to be used. After the stem is impacted the trial tibial surface is applied followed by the trial meniscal components. After full range of motion is found with the appropriate length meniscal components varying the patella is prepared by resecting the posterior aspect of the patella using an oscillating saw, inserting a trial. The trial is then removed and the cruciate cutting guide applied using the bur to cut the cruciate cuts. After cruciate cuts are made all trials are removed. The wound is irrigated copiously with antibiotic solution and Water Pik and the actual components inserted into place using: Consensus knee system with B-Spoke protocol size 4 femur, one tibia, two patella and 10 insert with two batches of DePuy cement. After the cement has hardened and the components are found to have full range of motion with no instability, the tourniquet is deflated, total tourniquet time being 52 minutes at 300 mmHg pressure, 120 cc Exparel used around the knee joint for extra pain control. The deep fascia approximated with running #2 Quill, subcutaneous tissue approximated using interrupted running 2-0 and 3-0 Monocryl suture, Steri-Strips, sterile dressing and knee immobilizer. Estimated blood loss: 100 cc. No drain utilized. Sponge and suture count correct. Note: YULIANA Price, was present during the entire procedure to include patient positioning and the procedure. The medical necessity of nurse practitioner physicians assistant was indicated in this case due to the surgical complexity of the case itself. During the surgical case, the psychiatric technician assistant was working the back table while my credit control assistant YULIANA was directly assisting me. The patient tolerated the procedure well and left the operating in satisfactory condition. J. MD JESSICA Baker/BOLA /10:47 AM /11:46 AM
--- NOTE | 2017-07-26 14:52 | PD.ORT.PN ---
Subjective Subjective Remarks pt painful and groggy today. Some itchiness. Objective Vitals Vital Signs Date Time Temp Pulse Resp B/P (MAP) Pulse Ox O2 Delivery O2 Flow Rate FiO2 07/26/17 12:00 96.4 62 18 105/62 (76) 95 07/26/17 08:00 97.6 73 18 111/61 (78) 97 07/26/17 04:10 98.3 60 18 105/58 (74) 96 07/26/17 00:13 97.9 62 18 98/63 (75) 96 07/25/17 20:33 97.1 68 18 118/63 (81) 96 07/25/17 16:45 96.7 69 17 107/56 (73) 97 I/O 07/25/17 07/25/17 07/25/17 07/26/17 07/26/17 07/26/17 07:00 15:00 23:00 07:00 15:00 23:00 Intake Total 588 ml 960 ml 360 ml 120 ml Balance 588 ml 960 ml 360 ml 120 ml Intake Oral 120 ml 960 ml 360 ml 120 ml IV Total 468 ml # Voids 1 4 1 1 # Bowel Movements 0 1 0 0 Result Diagram: 07/26/17 0417 07/25/17 0828 Imaging Last 24 hours Impressions Knee X-Ray 07/24/17 1054 Signed Impressions: Service Date/Time: Monday, July 24, 2017 11:32 - CONCLUSION: Status post total knee arthroplasty. Robi Vasquez MD Objective Remarks Dressing dry and intact. Block no longer working. Wound clean and dry. NV intact. No calf tenderness. Assessment & Plan Ortho Post Op Day #: 2 Problem List: Assessment and Plan PT, wound care. home soon with HHC and PT. Switch hydrocodone to Percocet. Keely Del Castillo MD Jul 26, 2017 14:52
[2017-07-26 16:00] VITALS: BP 110/67; PULSE 70; RESP 18; TEMP 97.2; O2SAT 97
[2017-07-26] MEDS: oxyCODONE/ACETAMINOPHEN 7.5 MG/325 MG TAB PO PRN ×2 (17:46→21:48)
[2017-07-26 20:34] VITALS: BP 110/67; PULSE 69; RESP 17; TEMP 97.8; O2SAT 96
[2017-07-26] MEDS: ATORVASTATIN 10 MG TAB PO SCH (21:47)
[2017-07-26] MEDS: ESTRADIOL 0.1 MG/GM VAG CREAM 42.5 GM VAGINAL SCH (21:48)
[2017-07-27 00:21] VITALS: BP 117/62; PULSE 70; RESP 17; TEMP 98; O2SAT 96
[2017-07-27] MEDS: LACTATED RINGER'S 1000 ML INJ 1,000 ML IV SCH (01:24)
[2017-07-27] MEDS: oxyCODONE/ACETAMINOPHEN 7.5 MG/325 MG TAB PO PRN ×5 (01:59→15:35)
[2017-07-27 04:17] VITALS: BP 114/58; PULSE 70; RESP 17; TEMP 98.6; O2SAT 96
[2017-07-27 08:00] VITALS: BP 123/77; PULSE 56; RESP 18; TEMP 97.6; O2SAT 94
[2017-07-27] MEDS: SERTRALINE HCL 50 MG TAB PO SCH (09:00)
[2017-07-27] MEDS: PANTOPRAZOLE SOD 20 MG DELAYED RELEASE TAB PO SCH (09:09)
[2017-07-27] MEDS: MULTIVITAMINS/MINERALS THERAPEUTIC TAB PO SCH (09:09)
[2017-07-27] MEDS: LISINOPRIL 10 MG TAB PO SCH (09:10)
[2017-07-27] MEDS: APIXABAN 2.5 MG TABLET PO SCH (09:10)
[2017-07-27] MEDS: ASPIRIN EC 81 MG TABEC PO SCH (09:11)
[2017-07-27] MEDS: DOCUSATE SODIUM 100 MG CAP PO SCH (09:11)
[2017-07-27] MEDS: CHOLECALCIFEROL (VIT D3) 1000 UNIT TAB PO SCH (09:11)
[2017-07-27] MEDS: HYDROCHLOROTHIAZIDE 25 MG TAB PO SCH (09:11)
[2017-07-27] MEDS: SODIUM CHLORIDE 0.9% FLUSH 5 ML FLUSH IVF SCH (09:12)
[2017-07-27] MEDS: diphenhydrAMINE HCL 50 MG/ML VIAL IV PRN ×2 (09:12→15:36)
--- NOTE | 2017-07-27 11:41 | PD.ORT.PN ---
Subjective Subjective Remarks pt less painful and groggy today. Some itchiness. Objective Vitals Vital Signs Date Time Temp Pulse Resp B/P (MAP) Pulse Ox O2 Delivery O2 Flow Rate FiO2 07/27/17 08:00 97.6 56 18 123/77 (92) 94 07/27/17 04:17 98.6 70 17 114/58 (76) 96 07/27/17 00:21 98.0 70 17 117/62 (80) 96 07/26/17 20:34 97.8 69 17 110/67 (81) 96 07/26/17 16:00 97.2 70 18 110/67 (81) 97 07/26/17 12:00 96.4 62 18 105/62 (76) 95 I/O 07/26/17 07/26/17 07/26/17 07/27/17 07/27/17 07/27/17 07:00 15:00 23:00 07:00 15:00 23:00 Intake Total 120 ml 960 ml 240 ml 120 ml Balance 120 ml 960 ml 240 ml 120 ml Intake Oral 120 ml 960 ml 240 ml 120 ml # Voids 1 3 2 1 # Bowel Movements 0 0 0 0 Result Diagram: 07/26/17 0417 07/25/17 0828 Imaging Last 24 hours Impressions Knee X-Ray 07/24/17 1054 Signed Impressions: Service Date/Time: Monday, July 24, 2017 11:32 - CONCLUSION: Status post total knee arthroplasty. Robi Vasquez MD Objective Remarks Dressing dry and intact. Wound clean and dry. NV intact. No calf tenderness. Assessment & Plan Ortho Post Op Day #: 3 Problem List: Assessment and Plan PT, wound care. home today with HHC and PT. Keely Del Castillo MD Jul 27, 2017 11:41
--- NOTE | 2017-07-27 11:45 | HHI.DS ---
Discharge Summary Admission Date Jul 24, 2017 at 06:06 Discharge Date: Jul 27, 2017 Admitting Diagnosis Osteoarthritic degeneration left knee Diagnosis: (1) Status post total left knee replacement ICD Codes: Z96.652 - Presence of left artificial knee joint Brief History This is a 67 year old female patient CBC/BMP: 07/26/17 0417 07/25/17 0828 Significant Findings Laboratory Tests Test 07/25/17 08:28 07/26/17 04:17 White Blood Count 17.1 TH/MM3 (4.0-11.0) Red Blood Count 3.90 MIL/MM3 (4.00-5.30) Hematocrit 34.5 % (35.0-46.0) 33.0 % (35.0-46.0) Neutrophils (%) (Auto) 86.9 % (16.0-70.0) Lymphocytes (%) (Auto) 6.8 % (9.0-44.0) Neutrophils # (Auto) 14.9 TH/MM3 (1.8-7.7) Monocytes # (Auto) 1.1 TH/MM3 (0-0.9) Estimat Glomerular Filtration Rate 56 ML/MIN (>89) Thyroid Stimulating Hormone 3rd Gen 0.287 uIU/ML (0.358-3.740) Hemoglobin 10.9 GM/DL (11.6-15.3) PE at Discharge Dressing dry and intact. Wound clean and dry. NV intact. No calf tenderness. Hospital Course Patient underwent a left total knee arthroplasty on day of admission. She received a course of prophylactic IV antibiotics and within 23 hours started on anticoagulation therapy. She continued to improve with daily wound care and physical therapy. She remained afebrile vital signs stable and was discharged on third postoperative day to home with home healthcare and daily wound care. She has appointment for follow-up in the office as well. Patient is discharged in good condition. Pt Condition on Discharge: Good Discharge Disposition: Disch w/ Home Health Serv Discharge Instructions Diet Instructions: As Tolerated, No Restrictions Activities You Can Perform: Full Weight Bearing, Shower Only-No Bath Activities to Avoid: Bathing, Driving Keely Del Castillo MD Jul 27, 2017 11:45
[2017-07-27 12:00] VITALS: BP 121/63; PULSE 71; RESP 18; TEMP 97.5; O2SAT 97
--- NOTE | 2017-07-27 12:51 | HHI.PR ---
Subjective Remarks Patient seen and examined Complains of poorly controlled left knee pain Otherwise no other issues Objective Vitals Vital Signs Date Time Temp Pulse Resp B/P (MAP) Pulse Ox O2 Delivery O2 Flow Rate FiO2 07/27/17 08:00 97.6 56 18 123/77 (92) 94 07/27/17 04:17 98.6 70 17 114/58 (76) 96 07/27/17 00:21 98.0 70 17 117/62 (80) 96 07/26/17 20:34 97.8 69 17 110/67 (81) 96 07/26/17 16:00 97.2 70 18 110/67 (81) 97 I/O 07/26/17 07/26/17 07/26/17 07/27/17 07/27/17 07/27/17 07:00 15:00 23:00 07:00 15:00 23:00 Intake Total 120 ml 960 ml 240 ml 120 ml Balance 120 ml 960 ml 240 ml 120 ml Intake Oral 120 ml 960 ml 240 ml 120 ml # Voids 1 3 2 1 # Bowel Movements 0 0 0 0 Result Diagram: 07/26/17 0417 07/25/17 0828 Imaging Last Impressions Knee X-Ray 07/24/17 1054 Signed Impressions: Service Date/Time: Monday, July 24, 2017 11:32 - CONCLUSION: Status post total knee arthroplasty. Robi Vasquez MD Objective Remarks GENERAL: SKIN: Warm and dry. HEAD: Normocephalic. EYES: No scleral icterus. No injection or drainage. NECK: Supple, trachea midline. No JVD or lymphadenopathy. CARDIOVASCULAR: Regular rate and rhythm without murmurs, gallops, or rubs. RESPIRATORY: Breath sounds equal bilaterally. No accessory muscle use. GASTROINTESTINAL: Abdomen soft, non-tender, nondistended. MUSCULOSKELETAL: No cyanosis, or edema. BACK: Nontender without obvious deformity. No CVA tenderness. Procedures 07/24 - left total knee arthroplasty A/P Problem List: (1) Status post total left knee replacement ICD Code: Z96.652 - Presence of left artificial knee joint (2) Osteoarthritis of left knee ICD Code: M17.12 - Unilateral primary osteoarthritis, left knee (3) Hypertension ICD Code: I10 - Essential (primary) hypertension (4) Anxiety ICD Code: F41.9 - Anxiety disorder, unspecified (5) GERD (gastroesophageal reflux disease) ICD Code: K21.9 - Gastro-esophageal reflux disease without esophagitis Assessment and Plan 67-year-old female Status post left total knee arthroplasty Management per orthopedic surgery Continue current pain management LAUREN Dumont Hypertension On HTZC Hyperlipidemia On statin DVT prophylaxis:; Eliquis Discharge Planning Discharge per Mahin Shah MD Jul 27, 2017 12:51
== END 2017-07-27 17:03 | disposition home health service (06) | DRG 470 ==
LOC: HSDI 06:06 → N06A 15:12
PROVIDERS: ADMIT Surgery; ATTEND Surgery
PROC: 3E0T3CZ (ICD-10-PCS; 2017-07-24)
PROC: 0SRD0J9 Replacement of Left Knee Joint with Synthetic Substitute, Cemented, Open Approach (ICD-10-PCS; principal; 2017-07-24 08:21)
DX: M17.12 Unilateral primary osteoarthritis, left knee (principal); I10 Essential (primary) hypertension; M25.762 Osteophyte, left knee; K21.9 Gastro-esophageal reflux disease without esophagitis; G47.30 Sleep apnea, unspecified; F41.8 Other specified anxiety disorders; R11.0 Nausea; R51 Headache; E78.5 Hyperlipidemia, unspecified; Z86.711 Personal history of pulmonary embolism
CPT/HCPCS: 73560; 76937; 80053; 81001; 83036; 83735; 84100; 84439; 84443; 85014; 85018; 85025; 86850; 86900; 86901; 94150; C1776; C9290; J0690; J1100; J1200; J2250; J2370; J2405; J2795; J3370; J7050; J7120; L1830